=== PATIENT | female | born 1995 | race African-American/Black ===

== ENCOUNTER 2017-05-21 16:00 | Emergency (ER) | payer MEDICAID ==
[~2017-05-21] VITALS: Ht 170.2 cm; Wt 59.0 kg
[~2017-05-21 16:00] MED LIST: IBUPROFEN600 MG ORAL; NORCO 5-325 TA1 EACH ORAL
[2017-05-21 16:12] VITALS: BP 117/78
[2017-05-21] MEDS ORDERED: IBUPROFEN600 MG ORAL (16:36)
[2017-05-21] MEDS ORDERED: PROMETHAZINE-D118 ML ORAL (16:36)
[2017-05-21] MEDS ORDERED: AMOXICILLIN500 MG ORAL (16:36)
--- NOTE | 2017-05-21 17:47 | Emergency Room Report ---
History of Present Illness General Chief Complaint: Sore Throat Source: Patient Present Illness [facility] The patient is a 22-year-old female presenting for sore throat and cough for the past 2 days. Pain is an 8/10 burning sensation to the back of the throat and does not radiate. Worse with swallowing. She admits to a dry cough as well. She denies recent travel or known sick contacts. She denies any other symptoms including nausea, vomiting, fever, chills, rash Allergies: Coded Allergies: No Known Allergies (Unverified , 04/18/14) Patient History Past Medical History: see triage record Pertinent Family History: none Last Menstrual Period: 03/2017 Now: No Reviewed Nursing Documentation: PMH: Agreed, PSxH: Agreed Nursing Documentation-PMH Past Medical History: No Stated History Review of Systems All Other Systems: negative except mentioned in HPI Physical Exam Vital Signs Date Time Temp Pulse Resp B/P (MAP) Pulse Ox O2 Delivery O2 Flow Rate FiO2 05/21/17 16:12 98.8 76 16 117/78 97 Room Air Sp02 EP Interpretation: reviewed, normal General Appearance: no apparent distress, alert, GCS 15, non-toxic Head: normocephalic, atraumatic Eyes: bilateral eye normal inspection, bilateral eye PERRL ENT: hearing grossly normal, no angioedema, normal voice, uvula midline, tonsillar swelling, pharyngeal erythema, tonsillar exudate Neck: full range of motion, supple/symm/no masses Respiratory: chest non-tender, lungs clear, normal breath sounds, speaking full sentences Cardiovascular #1: regular rate, rhythm, no edema Gastrointestinal: normal bowel sounds, non tender, soft, non-distended, no guarding, no rebound Musculoskeletal: back normal, gait/station normal, normal range of motion, non- tender Neurologic: alert, oriented x3, responsive, motor strength/tone normal, sensory intact, speech normal Psychiatric: judgement/insight normal, memory normal, mood/affect normal, no suicidal/homicidal ideation Skin: normal color, no rash, warm/dry, well hydrated Lymphatic: no adenopathy Medical Decision Making PA Attestation Dr. Johnson is my supervising physician. Patient management was discussed with my supervising physician Diagnostic Impression: Primary Impression: Pharyngitis, acute Qualified Codes: J02.9 - Acute pharyngitis, unspecified ER Course The patient is a 22-year-old female presenting for sore throat and cough for the past 2 days Differential diagnosis include but not limited to pharyngitis, sinusitis, AOM, bronchitis, PNA Physical exam: Vitals within normal limits. Afebrile. No apparent distress HEENT exam: There is bilateral tonsillar edema, erythema, and exudate. Uvula midline. Moist mucous membranes. There is no cervical lymphadenopathy. Lungs are clear to auscultation bilaterally Skin is warm and dry. No rash The patient will be discharged home with a prescription for amoxicillin and is given ER precautions. Patient will followup with primary care Last Vital Signs Date Time Temp Pulse Resp B/P (MAP) Pulse Ox O2 Delivery O2 Flow Rate FiO2 05/21/17 16:42 98.8 71 17 121/74 98 Room Air Status: improved Disposition: HOME, SELF-CARE Condition: Improved Scripts D-Methorphan Hb/Prometh Hcl* (PROMETHAZINE-DM SYRUP*) 118 Ml Syrup 5 ML ORAL Q6H Y for For Cough, #118 ML 0 Refills Prov: VLADISLAV MORGAN.A. 05/21/17 Amoxicillin* (AMOXIL*) 500 Mg Capsule 500 MG ORAL Q12HR, #20 CAP Prov: VLADISLAV MORGAN P.A. 05/21/17 Ibuprofen* (MOTRIN*) 600 Mg Tablet 600 MG ORAL Q8H Y for For Pain, #30 TAB 0 Refills Prov: LEIGHANVLADISLAV P.A. 05/21/17 Referrals: OTHER,REFERRING (PCP) Patient Instructions: Sore Throat Additional Instructions: I discussed my findings with the patient. All questions and concerns have been answered. Treatment and medication compliance have been addressed. I advised the patient that they need to follow up with PMD in 3-5 days. Return to ED if pain remains or worsens, cough worsens or remains, you notice blood in your sputum, you notice wheezing, you experience a fever, or if needed for any reason. Patient verbalized understanding of discharge instructions. VLADISLAV MORGAN May 21, 2017 17:47
== END 2017-05-21 16:42 | disposition home or self-care (01) ==
LOC: EMR 16:30
DX: J02.9 Acute pharyngitis, unspecified (principal)
CPT/HCPCS: 99284

== ENCOUNTER 2017-07-30 23:23 | Emergency (ER) | payer MEDICAID ==
[~2017-07-30] VITALS: Ht 170.2 cm; Wt 61.2 kg
[~2017-07-30 23:23] MED LIST changes: +AMOXICILLIN500 MG ORAL; +PROMETHAZINE-D118 ML ORAL
[2017-07-30] MEDS ORDERED: NKM (23:40)
[2017-07-31] VITALS: BP 114/69
[2017-07-31] MEDS ORDERED: Cyclobenzaprine 10mg Tab ORAL ONE (00:15)
[2017-07-31] MEDS ORDERED: Acetaminophen 500mg (ES) tab ORAL ONE (00:15)
[2017-07-31] MEDS ORDERED: CYCLOBENZAPRINE10 MG ORAL (00:23)
[2017-07-31] MEDS ORDERED: IBUPROFEN600 MG ORAL (00:23)
[2017-07-31 00:35] VITALS: BP 114/69
--- NOTE | 2017-07-31 03:29 | Emergency Room Report ---
History of Present Illness General Chief Complaint: Back Pain-No Injury Source: Patient Present Illness HPI 22-year-old female presents ED complaining of left upper back pain. Started yesterday. Sharp, 8/10, nonradiating. Worse with bending and twisting. Denies chest pain or shortness of breath. Denies fall or trauma. No other aggravating relieving factors. Denies any other associated symptoms Allergies: Coded Allergies: No Known Allergies (Unverified , 04/18/14) Patient History Past Medical History: none Past Surgical History: none Pertinent Family History: none Social History: Denies: smoking, alcohol use, drug use Last Menstrual Period: Last month Now: No Immunizations: UTD Reviewed Nursing Documentation: PMH: Agreed, PSxH: Agreed Nursing Documentation-PMH Past Medical History: No Stated History Review of Systems All Other Systems: negative except mentioned in HPI Physical Exam Vital Signs Date Time Temp Pulse Resp B/P (MAP) Pulse Ox O2 Delivery O2 Flow Rate FiO2 07/30/17 23:36 98.2 91 16 118/73 99 Room Air Sp02 EP Interpretation: reviewed, normal General Appearance: no apparent distress, alert, GCS 15, non-toxic Head: normocephalic Eyes: bilateral eye normal inspection, bilateral eye PERRL ENT: normal ENT inspection Neck: full range of motion, supple, no bony tend, supple/symm/no masses Respiratory: chest non-tender, lungs clear, normal breath sounds, speaking full sentences Cardiovascular #1: normal inspection Gastrointestinal: normal inspection Rectal: deferred Genitourinary: no CVA tenderness, no vertebral tenderness Musculoskeletal: tender - L paraspinal thoracic pain. no bony tenderness Neurologic: alert, oriented x3, responsive, motor strength/tone normal, sensory intact, speech normal Psychiatric: normal inspection Skin: normal inspection Lymphatic: normal inspection Medical Decision Making Diagnostic Impression: Primary Impression: Muscle strain ER Course Hospital Course 22-year-old female presents ED complaining of upper back pain. No evidence of trauma Differential diagnoses include: pyelonephritis, kidney stone, muscle strain, Tspine fracture Clinical course Patient placed on stretcher. After initial history, physical exam reveals a female in no acute distress. There is no vertebral body tenderness. There is palpable tenderness underneath the left shoulder blade. Consistent with muscle strain. I ordered meds for pain. Upon reassessment patient states pain has improved. Diagnosis - muscle strain Stable and discharged to home with prescription for motrin, Flexeril. Followup with PMD. Return to ED if symptoms recur or worsen Last Vital Signs Date Time Temp Pulse Resp B/P (MAP) Pulse Ox O2 Delivery O2 Flow Rate FiO2 07/31/17 00:35 98.2 71 16 114/69 99 Room Air Status: improved Disposition: HOME, SELF-CARE Condition: Stable Scripts Cyclobenzaprine Hcl* (FLEXERIL*) 10 Mg Tablet 10 MG ORAL TID Y for Muscle Spasm, #20 TAB Prov: SURAJ TENORIO M.D. 07/31/17 Ibuprofen* (MOTRIN*) 600 Mg Tablet 600 MG ORAL Q8H Y for For Pain, #30 TAB 0 Refills Prov: SURAJ TENORIO M.D. 07/31/17 Referrals: NON PHYSICIAN (PCP) Departure Forms: Return to Work Return to Work Date: Aug 02, 2017 Work Restrictions: No Heavy Lifting Patient Instructions: Back Pain, Adult SURAJ TENORIO M.D. Jul 31, 2017 03:29
== END 2017-07-31 00:35 | disposition home or self-care (01) ==
LOC: EMR 23:55
DX: S29.012A Strain of muscle and tendon of back wall of thorax, initial encounter (principal); X58.XXXA Exposure to other specified factors, initial encounter; Y92.9 Unspecified place or not applicable
CPT/HCPCS: 99283